=== PATIENT | male | born 1965 | race Caucasian/White ===

== ENCOUNTER 2018-03-31 06:55 | Emergency (ER) | payer OTHER ==
[2018-03-31 07:17] LABS: BASO % 0.2 % (0-6); EOS % 5.3 % (0-6); GRAN % 58.1 % (47-80); HEMATOCRIT 40.9 % (42.0-52.0); LYMPH % 27.3 % (16-45); MEAN CORPUSCULAR HEMOGLOBIN 30.1 pg (27-33); MEAN CORPUSCULAR HGB CONC 34.2 g/dl (32-36); MEAN PLATELET VOLUME 9.8 fl (7.4-10.4); MONO % 9.1 % (0-9); PLATELET COUNT 241 K/uL (130-400); RED BLOOD COUNT 4.65 M/uL (4.40-5.70); RED CELL DISTRIBUTION WIDTH 12.8 % (11.5-14.5); WHITE BLOOD COUNT W/O DIFF 9.6 K/uL (4.2-12.2)
[2018-03-31] MEDS: ASPIRIN 81 MG CHEWABLE TABLET PO ONE (07:19)
[2018-03-31] MEDS: AL HYDROX/MAG HYDROX 30ML UD PO ONE (07:26)
[2018-03-31 07:27] LABS: BLOOD UREA NITROGEN 20 mg/dL (6-20); CREATININE 1.1 mg/dL (0.7-1.2); EST GLOMERULAR FILTRATION RATE > 60 mL/min
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
[2018-03-31 07:30] LABS: GLUCOSE,RANDOM 118 mg/dL (74-109)
[2018-03-31] MEDS: ALBUTEROL HFA 8 GM INHALER INH ONE (08:25)
[2018-03-31 12:34] LABS: AMPHETAMINE SCREEN URINE NOT DETECTED; BARBITURATE SCREEN URINE NOT DETECTED; BENZODIAZEPINE SCREEN URINE NOT DETECTED; COCAINE SCREEN URINE NOT DETECTED; METHADONE SCREEN URINE NOT DETECTED; METHAMPHETAMINE SCREEN NOT DETECTED; OPIATE SCREEN URINE NOT DETECTED; OXYCODONE SCREEN URINE NOT DETECTED; PHENCYCLIDINE SCREEN URINE NOT DETECTED; PROPOXYPHENE SCREEN URINE NOT DETECTED; THC SCREEN URINE NOT DETECTED; TRICYCLIC ANTIDEPRESSANT SCRN NOT DETECTED
--- NOTE | 2018-03-31 14:13 | RADIOLOGY REPORT ---
EXAM: CHEST, TWO VIEWS HISTORY: CHEST PAIN BEGINNING THIS MORNING. TECHNIQUE: PA and lateral views of the chest were obtained. Comparison: None. FINDINGS: The heart size is within normal limits. The lungs appear expanded with no acute infiltrate seen. No pleural effusion or pneumothorax evident. IMPRESSION: THE CHEST APPEARS NEGATIVE WITH NO DEFINITE ACUTE INFILTRATE SEEN. JOB NUMBER: [id number] MTDD
== END 2018-03-31 11:18 | disposition home or self-care (01) ==
LOC: ER 06:55
DX: T59.811A Toxic effect of smoke, accidental (unintentional), initial encounter (principal); R07.2 Precordial pain; I10 Essential (primary) hypertension; Y92.63 Factory as the place of occurrence of the external cause; Y99.0 Civilian activity done for income or pay
CPT/HCPCS: 71046; 80048; 80305; 82375; 82553; 84484; 85025; 85730; 93005; 93010; 94640; 99284

== ENCOUNTER 2018-07-22 03:19 | Emergency (ER) | payer OTHER ==
--- NOTE | 2018-07-22 03:34 | Emergency Department Record ---
History of Present Illness - General Chief Complaint: Hypertension Stated Complaint: HIGH BP Time Seen by Provider: 07/22/18 03:30 Source: Patient Mode of Arrival: Ambulatory Limitations: No limitations - History of Present Illness Initial Comments: The patient is here due to feeling lightheaded and dizzy off and on for 12-13 hours. He was at work and decided to come to the ER. Presently his symptoms have resolved. The patient states his blood pressure has been running high all day and was 170 systolic at one time. He specifically did tell the nurse he had no pain or discomfort but when I asked about chest discomfort he states he has had 1/10 retrosternal chest discomfort for about 12 hours also. He denies any SOB, JESSICA, sweating, or nausea. The patient also denies any CP with exertion. The patient's only cardiac risk factor is mild HTN. MD Complaint: Lightheadedness Onset/Timin -: Hour(s) - Related Data Home Medications Medication Instructions Recorded Confirmed Last Taken Losartan/Hydrochlorothiazide 1 each PO DAILY 07/22/18 07/22/18 Unknown [Losartan-Hctz 50-12.5 mg Tab] Allergies Allergy/AdvReac Type Severity Reaction Status Date / Time No Known Drug Allergies Allergy Verified 03/31/18 06:57 Review of Systems Constitutional: Denies: Chills, Fever Eyes: Denies: Eye discharge ENT: Denies: Congestion Respiratory: Denies: Cough, Dyspnea Past Medical History - SOCIAL HISTORY Smoking Status: Never smoker Drug Use: None - RESPIRATORY Hx Respiratory Disorders: No - CARDIOVASCULAR Hx Cardio Disorders: Yes Hx Hypertension: Yes - NEURO Hx Neuro Disorders: No - GI Hx GI Disorders: No - Hx Genitourinary Disorders: No - ENDOCRINE Hx Endocrine Disorders: No - MUSCULOSKELETAL Hx Musculoskeletal Disorders: No - PSYCH Hx Psych Problems: No - HEMATOLOGY/ONCOLOGY Hx Hematology/Oncology Disorders: No Physical Exam - General General Appearance: Alert, Oriented x3, Cooperative, No acute distress - Head Head exam: Atraumatic, Normocephalic, Normal inspection - Eye Eye exam: Normal appearance, PERRL, EOMI - ENT Throat exam: Normal inspection. negative: Tonsillar erythema, Tonsillar exudate - Neck Neck exam: Normal inspection, Full ROM. negative: Tenderness - Respiratory Respiratory exam: Normal lung sounds bilaterally. negative: Respiratory distress - Cardiovascular Cardiovascular Exam: Regular rate, Normal rhythm, Normal heart sounds - GI/Abdominal GI/Abdominal exam: Soft, Normal bowel sounds. negative: Tenderness - Extremities Extremities exam: Normal inspection, Full ROM, Normal capillary refill. negative: Tenderness - Back Back exam: Reports: Normal inspection - Neurological Neurological exam: Alert, Normal gait. negative: Abnormal gait, Motor sensory deficit Course Vital Signs 07/22/18 03:26 Temperature 97.8 F Pulse Rate [ 70 Pulse Ox Probe] Respiratory 18 Rate Blood Pressure 151/93 [Left Arm] Pulse Ox 97 - Reevaluation(s) Reevaluation #1: The patient is doing very well at this time. Presently he denies any pain or discomfort and feels his symptoms earlier were due to anxiety. I did explain to him that I do recommend a short stay hospital admission to check his heart out with an echo and EST. The patient is reluctant to follow those instructions. I did explain to him that the risks of leaving are that he could go home and have an [place], stroke, become disabled and even . The patient understands the risks and understands we cannot be held liable for him leaving and not following our instructions. He is to see his PCP as soon as possible and is to return to the ER for any worsening symptoms. 07/22/18 04:31 Medical Decision Making - Data Complexity MDM Data: Labs Ordered and/or Reviewed, EKG Ordered and/or Reviewed - Lab Data Result diagrams: 07/22/18 03:50 07/22/18 03:50 - EKG Data -: EKG Interpreted by Me EKG: No Acute Changes, Normal EKG Disposition Disposition: Discharge Clinical Impression: Hypertension Qualifiers: Hypertension type: unspecified Qualified Code(s): I10 - Essential (primary) hypertension Disposition: Home, Self-Care Condition: (2) Stable Instructions: Hypertension (ED) Additional Instructions: Please continue your regular medicines and see your family doctor UBALDO. Return to the ER for any worsening symptoms. Forms: Patient Portal Access Time of Disposition: 04:34 Quality - Quality Measures Quality Measures: N/A - Blood Pressure Screening View Details: Yes Does Patient Have Any of the Following: Active Dx of HTN Blood Pressure Classification: Pre-Hypertensive BP Reading Systolic Measurement: 131 Diastolic Measurement: 83 Screening for High Blood Pressure: Patient Exclusion, Hx of HTN [G9744]
[2018-07-22 03:59] LABS: BASO % 0.2 % (0-6); EOS % 6.2 % (0-6); GRAN % 56.7 % (47-80); HEMATOCRIT 40.8 % (42.0-52.0); HEMOGLOBIN 13.9 gm/dl (14.0-18.0); LYMPH % 29.2 % (16-45); MEAN CELL VOLUME 87.6 fl (81-97); MEAN CORPUSCULAR HEMOGLOBIN 29.8 pg (27-33); MEAN CORPUSCULAR HGB CONC 34.1 g/dl (32-36); MEAN PLATELET VOLUME 9.6 fl (7.4-10.4); MONO % 7.7 % (0-9); PLATELET COUNT 241 K/uL (130-400); RED BLOOD COUNT 4.66 M/uL (4.40-5.70); WHITE BLOOD COUNT W/O DIFF 8.4 K/uL (4.2-12.2)
[2018-07-22 04:10] LABS: BLOOD UREA NITROGEN 17 mg/dL (6-20); EST GLOMERULAR FILTRATION RATE > 60 mL/min
[2018-07-22 04:13] LABS: GLUCOSE,RANDOM 133 mg/dL (74-109)
[2018-07-22 04:15] LABS: CREATINE PHOSPHOKINASE 141 U/L (39-308)
[2018-07-22 04:24] LABS: CKMB 2.3 ng/mL (<6.73)
== END 2018-07-22 04:41 | disposition home or self-care (01) ==
LOC: ER 03:19
DX: I10 Essential (primary) hypertension (principal); R42 Dizziness and giddiness
CPT/HCPCS: 80048; 82550; 82553; 84484; 85025; 93005; 93010; 99284